=== PATIENT | female | born 1995 | race Caucasian/White ===

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

== ENCOUNTER 2017-10-02 14:59 | Emergency (ER) | payer OTHER ==
[2017-10-02 17:23] LABS: Urine Appearance Cloudy; Urine Color Orange; Urine Specific Gravity 1.012 (1.010-1.030)
--- NOTE | 2017-10-02 17:44 | ED ---
GI/ HPI - HPI Summary HPI Summary: 22F presents with dysuria for the past 6 days. She states she has had history of two uti the past month. She was seen at [facility] and told she has a uti. She states she peed out white stones. no change in pain after peed out stone. [facility] sent her because thought had kidney stone. no vomiting but admits to nausea. flank pain is bilateral. no history of kidney stones. no fever. She denies any vaginal discharge. She was started on macrobid today. She denies any diarrhea or constipation. She has no medical conditions. She took pyridium. pain is minimal at moment. She took ibuprofen. - History of Current Complaint Chief Complaint: EDFlankPain Time Seen by Provider: 10/02/17 17:32 Stated Complaint: BACK PAIN/BOTH SIDES Pain Intensity: 7 - Allergy/Home Medications Allergies/Adverse Reactions: Allergies Allergy/AdvReac Type Severity Reaction Status Date / Time amoxicillin [From Augmentin] Allergy Rash Verified 10/02/17 15:04 cefdinir Allergy Rash Verified 10/02/17 15:04 clavulanic acid Allergy Rash Verified 10/02/17 15:04 [From Augmentin] Home Medications: Home Medications Nitrofurantoin Monohyd/M-Cryst [Macrobid 100 mg Capsule] 100 mg PO DAILY [History Confirmed 10/02/17] Norethindrone-E.estradiol-Iron [Loestrin Fe 06/12 1-20 mg-Mcg] 1 tab PO DAILY 05/10 [History Confirmed 10/02/17] Phenazopyridine HCl [Pyridium] 2 tab PO DAILY 10/02/17 [History Confirmed ] Spironolactone TAB* [Aldactone TAB 25 MG*] 100 mg PO DAILY 10/02/17 [History Confirmed 10/02/17] PMH/Surg Hx/FS Hx/Imm Hx Endocrine/Hematology History: Denies: Hx Anticoagulant Therapy Cardiovascular History: Denies: Hx Myocardial Infarction - Surgical History Surgery Procedure, Year, and Place: DEVIATED SEPTUM SX JUST RECENTLY (05/26/2016) ON [place], [place] Hx Anesthesia Reactions: No Infectious Disease History: No Infectious Disease History: Denies: Traveled Outside the US in Last 30 Days - Family History Known Family History: Positive: Renal Disease - pyelo mom Negative: Blood Disorder - Social History Alcohol Use: Weekly Hx Substance Use: No Substance Use Type: Reports: None Smoking Status (MU): Never Smoked Tobacco Review of Systems Negative: Fever Negative: Chest Pain Negative: Shortness Of Breath Positive: Nausea. Negative: Abdominal Pain, Vomiting Positive: dysuria, frequency, flank pain All Other Systems Reviewed And Are Negative: Yes Physical Exam Triage Information Reviewed: Yes Vital Signs On Initial Exam: Initial Vitals Temp Pulse Resp BP Pulse Ox 98 F 90 16 124/74 95 10/02/17 15:01 10/02/17 15:01 10/02/17 15:01 10/02/17 15:01 10/02/17 15:01 Vital Signs Reviewed: Yes Appearance: Positive: Well-Appearing Skin: Positive: Warm, Dry Head/Face: Positive: Normal Head/Face Inspection Eyes: Positive: Normal, Conjunctiva Clear Respiratory/Lung Sounds: Positive: Clear to Auscultation, Breath Sounds Present Cardiovascular: Positive: Normal, RRR Abdomen Description: Positive: Nontender, Soft. Negative: CVA Tenderness (R), CVA Tenderness (L) Bowel Sounds: Positive: Present Musculoskeletal: Positive: Normal Neurological: Positive: Normal Psychiatric: Positive: Normal Diagnostics - Vital Signs Vital Signs Temp Pulse Resp BP Pulse Ox 10/02/17 15:01 98 F 90 16 124/74 95 - Laboratory Lab Results: Lab Results 10/02/17 Range/Units 17:03 Urine Color [place] Urine Appearance Cloudy Urine pH (5-9) Ur Specific [place] 1.012 (1.010-1.030) Urine Protein Not Reportable Urine Ketones Not Reportable Urine Blood Not Reportable Urine Nitrate Not Reportable Urine Bilirubin Not Reportable Urine Urobilinogen Not Reportable Ur Leukocyte Esterase Not Reportable Urine WBC (Auto) Trace(0-5/hpf) (Absent) Urine RBC (Auto) Absent (Absent) Urine Glucose Not Reportable Urine Ascorbic Acid Not Reportable Result Diagrams: 10/02/17 18:29 10/02/17 18:29 Lab Statement: Any lab studies that have been ordered have been reviewed, and results considered in the medical decision making process. - CT abd CT Interpretation: No Acute Changes CT Interpretation Completed By: Radiologist GIGU Course/Dx - Course Course Of Treatment: 22F presents with dysuria for the past 6 days. She states she has had history of two uti the past month. She was seen at [facility] and told she has a uti. She states she peed out white stones. no change in pain after peed out stone. [facility] sent her because thought had kidney stone. no vomiting but admits to nausea. flank pain is bilateral. no history of kidney stones. no fever. She denies any vaginal discharge. She was started on macrobid today. She denies any diarrhea or constipation. She has no medical conditions. She took pyridium. pain is minimal at moment. She took ibuprofen. on exam has nontender CVA. nontender abd. urine due to pyridium unable to tell if uti. CT shows no stone. We will treat with Cipro. Patient understands and agrees with plan. - Diagnoses Differential Diagnoses - Female: Pyelonephritis, Urinary Tract Infection, Ureteral Calculi Provider Diagnoses: Pyelonephritis Discharge - Sign-Out/Discharge Documenting (check all that apply): Discharge/Admit/Transfer - Discharge Plan Condition: Good Disposition: HOME Prescriptions: Ciprofloxacin TAB* [Cipro 500 MG TAB*] 500 mg PO BID #13 tab Patient Education Materials: Kidney Infection (ED) Referrals: Bety Calixto [Primary Care Provider] - Additional Instructions: Take antibiotic twice a day for 7 days, starting tomorrow Drink plenty of water Use alternative forms of control Take Tylenol or ibuprofen every 6 hours as needed for pain and fever Return to ED if develop severe vomiting, or any new or worsening symptoms - Billing Disposition and Condition Condition: GOOD Disposition: HOME
[2017-10-02] MEDS ORDERED: NS 0.9% 1000 ML* 1,000 ML IV ONE (17:51)
--- NOTE | 2017-10-02 18:23 | RAD ---
Indication: Bilateral flank pain, dysuria. CT of the abdomen and pelvis was performed without oral or IV contrast administration. Coronal and sagittal reconstructed images were obtained. Lung bases demonstrate no pleural fluid, nodules or masses. Heart is of normal size without evidence of pericardial effusion. Liver is normal in size. No focal lesions or intrahepatic ductal dilatation is noted. The spleen is normal in size. The pancreas demonstrates no mass or pancreatic ductal dilatation. The common duct is not dilated. The gallbladder demonstrates no gallstones, pericholecystic fluid or wall thickening. The common duct is not dilated. The kidneys demonstrate no focal masses. No hydronephrosis is noted. No retroperitoneal lymphadenopathy is noted. Aorta and inferior vena cava are unremarkable. CT of the pelvis demonstrates no retroperitoneal or pelvic lymphadenopathy. Urinary bladder is unremarkable. Colon is filled with stool. No hernias are identified. IMPRESSION: No obstructive uropathy is noted. No abnormal masses or fluid collections are noted. The study is limited due to lack of oral and IV contrast administration.
[2017-10-02 18:42] LABS: ABS Basophils 0 10^3/ul (0-0.2); ABS Eosinophils 0.1 10^3/ul (0-0.6); ABS Lymphocytes 1.7 10^3/ul (1.0-4.8); ABS Monocytes 0.7 10^3/ul (0-0.8); ABS Neutrophils 5.3 10^3/ul (1.5-7.7); ABS Nucleated RBC 0 10^3/ul; Eosinophil % 1.3 % (0-6); Hematocrit 35 % (35-47); Hemoglobin 11.9 g/dl (12.0-16.0); Lymphocyte % 21.6 % (25-47); Mean Corpuscular HGB Conc 34 g/dl (31-36); Mean Corpuscular Hemoglobin 31 pg (27-31); Mean Corpuscular Volume 90 fL (80-97); Mean Platelet Volume 7.8 um3 (7.4-10.4); Nucleated Red Blood Cells % 0; Platelet Count 349 10^3/ul (150-450); Red Blood Count 3.86 10^6/ul (4.0-5.4); Red Cell Distribution Width 12 % (10.5-15); White Blood Count 7.8 10^3/ul (3.5-10.8)
[2017-10-02] MEDS ORDERED: Ciprofloxacin TAB* 500 MG PO ONE (18:45)
[2017-10-02 18:58] LABS: EGFR Non-African American 88.9 (>60)
[2017-10-02 19:33] VITALS: BP 127/85
--- NOTE | 2017-10-05 08:49 | ED ---
Progress - Progress Note Progress Note: patient's preliminary urine culture reveals 1-10,000 Proteus Mirabilis. Patient was started on Cipro. Pending final results. Course/Dx - Course Course Of Treatment: 22F presents with dysuria for the past 6 days. She states she has had history of two uti the past month. She was seen at [facility] and told she has a uti. She states she peed out white stones. no change in pain after peed out stone. [facility] sent her because thought had kidney stone. no vomiting but admits to nausea. flank pain is bilateral. no history of kidney stones. no fever. She denies any vaginal discharge. She was started on macrobid today. She denies any diarrhea or constipation. She has no medical conditions. She took pyridium. pain is minimal at moment. She took ibuprofen. on exam has nontender CVA. nontender abd. urine due to pyridium unable to tell if uti. CT shows no stone. We will treat with Cipro. Patient understands and agrees with plan. - Diagnoses Provider Diagnoses: Pyelonephritis Discharge - Sign-Out/Discharge Documenting (check all that apply): Post-Discharge Follow Up - Discharge Plan Condition: Good Disposition: HOME Prescriptions: Ciprofloxacin TAB* [Cipro 500 MG TAB*] 500 mg PO BID #13 tab Patient Education Materials: Kidney Infection (ED) Referrals: Bety Calixto [Primary Care Provider] - Additional Instructions: Take antibiotic twice a day for 7 days, starting tomorrow Drink plenty of water Use alternative forms of control Take Tylenol or ibuprofen every 6 hours as needed for pain and fever Return to ED if develop severe vomiting, or any new or worsening symptoms - Billing Disposition and Condition Condition: GOOD Disposition: HOME
--- NOTE | 2017-10-06 23:59 | ED ---
Progress - Progress Note Progress Note: patient's preliminary urine culture reveals 1-10,000 Proteus Mirabilis. Patient was started on Cipro. Pending final results. FINAL results show 1-10,000 Proteus mirabilis. Patient placed on Cipro. Organism is susceptible to Cipro. Course/Dx - Course Course Of Treatment: 22F presents with dysuria for the past 6 days. She states she has had history of two uti the past month. She was seen at [facility] and told she has a uti. She states she peed out white stones. no change in pain after peed out stone. [facility] sent her because thought had kidney stone. no vomiting but admits to nausea. flank pain is bilateral. no history of kidney stones. no fever. She denies any vaginal discharge. She was started on macrobid today. She denies any diarrhea or constipation. She has no medical conditions. She took pyridium. pain is minimal at moment. She took ibuprofen. on exam has nontender CVA. nontender abd. urine due to pyridium unable to tell if uti. CT shows no stone. We will treat with Cipro. Patient understands and agrees with plan. - Diagnoses Provider Diagnoses: Pyelonephritis Discharge - Sign-Out/Discharge Documenting (check all that apply): Post-Discharge Follow Up - Discharge Plan Condition: Good Disposition: HOME Prescriptions: Ciprofloxacin TAB* [Cipro 500 MG TAB*] 500 mg PO BID #13 tab Patient Education Materials: Kidney Infection (ED) Referrals: Bety Calixto [Primary Care Provider] - Additional Instructions: Take antibiotic twice a day for 7 days, starting tomorrow Drink plenty of water Use alternative forms of control Take Tylenol or ibuprofen every 6 hours as needed for pain and fever Return to ED if develop severe vomiting, or any new or worsening symptoms - Billing Disposition and Condition Condition: GOOD Disposition: HOME
== END 2017-10-02 19:34 | disposition home or self-care (01) ==
LOC: ED 14:59
DX: N12 Tubulo-interstitial nephritis, not specified as acute or chronic (principal); Z88.3 Allergy status to other anti-infective agents
CPT/HCPCS: 36415; 74176; 80053; 81003; 81015; 84702; 85025; 86141; 87077; 87086; 87186; 99282; A9270-GY

== ENCOUNTER 2018-02-21 12:37 | Emergency (ER) | payer OTHER ==
[2018-02-21 13:33] VITALS: BP 109/67
--- NOTE | 2018-02-21 14:41 | UC ---
Ear Complaint HPI - HPI Summary HPI Summary: 22 y/o female presents to the urgent care c/o pt states she has rt sided jaw pain that now has moved to her rt jaw that started . - History of Current Complaint Chief Complaint: UCEar Stated Complaint: EAR ACHE ON OUTSIDE OF EAR, AND TROUBLE WITH MOUTH Time Seen by Provider: 02/21/18 14:39 Hx Obtained From: Patient Hx Last Menstrual Period: 01/31/18 ?: No Onset/Duration: Gradual Onset, Lasting Days - 4 days, Still Present, Worse Since - today Severity Initially: Mild Severity Currently: Moderate Pain Intensity: 7 Pain Scale Used: 0-10 Numeric Aggravating Factors: Other - touch Rt ear Alleviating Factors: Nothing Related History: Seasonal Allergies, Prior ENT Surgery - Allergies/Home Medications Allergies/Adverse Reactions: Allergies Allergy/AdvReac Type Severity Reaction Status Date / Time amoxicillin [From Augmentin] Allergy Rash Verified 02/21/18 13:33 cefdinir Allergy Rash Verified 02/21/18 13:33 clavulanic acid Allergy Rash Verified 02/21/18 13:33 [From Augmentin] PMH/Surg Hx/FS Hx/Imm Hx Previously Healthy: Yes Other Respiratory History: Recurrent sinusitis Other History Of: Negative For: Anticoagulant Therapy - Surgical History Surgical History: Yes Surgery Procedure, Year, and Place: DEVIATED SEPTUM SX JUST RECENTLY (05/26/2016) ON [place], [place], repeated sinus surgeries - Family History Known Family History: Positive: Renal Disease - pyelo mom Negative: Blood Disorder Family History: Thyroid tumor mother side - Social History Occupation: Student Lives: With Family Alcohol Use: Weekly Substance Use Type: None Smoking Status (MU): Never Smoked Tobacco - Immunization History Vaccination Up to Date: Yes Review of Systems Constitutional: Negative Skin: Negative Eyes: Negative ENT: Ear Ache - Rt ear pain radiating to the RT lower jaw, Other - decrease hearing Respiratory: Negative Cardiovascular: Negative Gastrointestinal: Negative Genitourinary: Negative Motor: Negative Neurovascular: Negative Musculoskeletal: Negative Neurological: Negative Psychological: Negative Is Patient Immunocompromised?: No All Other Systems Reviewed And Are Negative: Yes Physical Exam - Summary Physical Exam Summary: Vital signs: reviewed General: well developed, well nourished female adolescent sitting in the examining table w/o any apparent distress Skin: [place], warm and dry, no evidence of atopic dermatitis, psoriasis, seborrhea. HEENT: -Head: atraumatic, non tender; no scalp dermatitis. -Eyes: sclera and conjunctiva clear, PERRLA, EOMI -Ears: no pre- or postauricular lymphadenopathy or erythema; RT external ear canal with erythema and yellowish purulent discharge, pinna tenderness on palpation, Rt TM WNL, LF external ear canal clear and LF TM WNL. TMs normal w/ out bulging or retraction. Good light reflex. No fluid level, vesicles, or bullae. No perforation. -Nose/Face: erythematous and edematous nasal mucosa with clear rhinorrhea, no frontal or maxillary sinus tender to palpation. -Mouth/Throat: Mucous membrane moist, posterior pharynx clear, no erythema or exudates. Neck: supple, FROM, nontender, no lymphadenopathy, no meningismus. Chest: Clear to auscultation, normal breath sounds Abd: soft, Bowel sounds active, Nontender. Back: no spinal or CVAT Neuro: A&O x4, GCS 15, no focal neuro deficits, normal behavior for age. Triage Information Reviewed: Yes Vital Signs: Initial Vital Signs Temp 97.7 F 02/21/18 13:30 Pulse 83 02/21/18 13:30 Resp 18 02/21/18 13:30 BP 109/67 02/21/18 13:30 Pulse Ox 100 02/21/18 13:30 Ear Complaint Course/Dx - Differential Dx/Diagnosis Differential Diagnosis/HQI/PQRI: Barotrauma, Cerumen Impaction, Otitis Externa, Otitis Media, Perforated TM, Trigeminal Nueralgia, URI Provider Diagnoses: 1-RT Otitis externa. 2- Otalgia Discharge - Sign-Out/Discharge Documenting (check all that apply): Patient Departure - D/c home All imaging exams completed and their final reports reviewed: No Studies - Discharge Plan Condition: Stable Disposition: HOME Prescriptions: Neomyc/Polym/HC 1% OTIC SUSP* [Cortisporin Otic Susp 1%*] 4 drop RIGHT EAR QID # 1 btl Patient Education Materials: Otitis Externa (ED) Referrals: Bety Calixto [employer] [Primary Care Provider] - 3 Days Additional Instructions: 1-Please apply otic antibiotic on your Rt ear as directed. 2-Take ibuprofen PO after meals for pain. 3-If symptoms do not improve or worsen please f/u with your PCP in 3 days or return to the urgent care for further evaluation and treatment. - Billing Disposition and Condition Condition: STABLE Disposition: Home
== END 2018-02-21 15:16 | disposition home or self-care (01) ==
LOC: UCEAST 12:37
DX: H60.91 Unspecified otitis externa, right ear (principal); Z88.1 Allergy status to other antibiotic agents; Z88.0 Allergy status to penicillin
CPT/HCPCS: 99212; G0463